=== PATIENT | male | born 1940 | race Caucasian/White ===

== ENCOUNTER 2016-10-26 06:38 | Day surgery (SDC) | payer OTHER ==
[~2016-10-26] VITALS: Ht 170.2 cm; Wt 95.3 kg
[2016-10-26] MEDS ORDERED: DIOVAN160 M1 PO (07:42)
[2016-10-26] MEDS ORDERED: HCTZ PO (07:43)
[2016-10-26] MEDS ORDERED: MULTI VITAMINS1 TAB PO (07:44)
[2016-10-26] MEDS ORDERED: MIDAZOLAM 2 MG/2 ML VIAL ONE (08:21)
== END 2016-10-26 09:40 | disposition home or self-care (01) ==
LOC: MDS 06:38 → MMU 06:38 → MDS 09:40
PROVIDERS: ATTEND Internal Medicine Gastroenterology
DX: K31.9 Disease of stomach and duodenum, unspecified (principal); K44.9 Diaphragmatic hernia without obstruction or gangrene; K21.9 Gastro-esophageal reflux disease without esophagitis; K27.9 Peptic ulcer, site unspecified, unspecified as acute or chronic, without hemorrhage or perforation; I10 Essential (primary) hypertension; E66.9 Obesity, unspecified; M19.90 Unspecified osteoarthritis, unspecified site; Z98.890 Other specified postprocedural states
CPT/HCPCS: 43235; J2250; J7030